=== PATIENT | female | born 1985 | race Caucasian/White ===

== ENCOUNTER 2019-10-16 06:10 | Day surgery (SDC) | payer MEDICAID ==
[~2019-10-16] VITALS: Ht 165.1 cm; Wt 123.4 kg
[2019-10-16] MEDS ORDERED: cefOXitin 2 GM IVPB PREMIX 50 ML IV ONE (06:45)
[2019-10-16 07:11] LABS: MEAN CORPUSCULAR HEMOGLOBIN 26 pg (27-31); MEAN CORPUSCULAR HGB CONC 29 % (32-36); MEAN CORPUSCULAR VOLUME 88 fL (79.0-98.0); PLATELET COUNT (AUTO) 283 K/uL (130-430); RED BLOOD CELL COUNT(AUTO) 2.56 MIL/uL (4.2-6.2); RED CELL DISTRIBUTION WIDTH 17.7 % (9.0-15.0); WHITE BLOOD COUNT (AUTO) 6.5 K/uL (4.8-10.8)
[2019-10-16 07:27] LABS: BILIRUBIN,URINE NEGATIVE (NEGATIVE); BLOOD, URINE 3+ (NEGATIVE); CLARITY/URINE CLOUDY (CLEAR); COLOR,URINE YELLOW (YELLOW); GLUCOSE,URINE NEGATIVE (NEGATIVE); KETONES,URINE NEGATIVE (NEGATIVE); LEUKOCYTE ESTERASE ,URINE NEGATIVE (NEGATIVE); NITRITE, URINE NEGATIVE (NEGATIVE); PROTEIN URINE 2+ (NEGATIVE); UROBILINOGEN,URINE 0.2 (0.2-1.0)
[2019-10-16 07:28] LABS: CALCIUM 7.9 mg/dL (8.4-11.0); POTASSIUM 4.2 mmol/L (3.5-5.1); TOTAL BILIRUBIN 0.2 mg/dL (0.0-1.0)
[2019-10-16 07:34] LABS: HEMOGLOBIN 6.6 g/dL (12.0-16.0)
[2019-10-16 07:35] LABS: HEMATOCRIT 22.4 % (36-48)
[2019-10-16 07:41] LABS: HCG,QUAL RESULT NEGATIVE (NEGATIVE)
[2019-10-16 08:11] LABS: BACTERIA,URINE FEW /HPF (None Seen); RBC,URINE >100 /HPF (0-3); WBC,URINE 0-3 /HPF (0-3)
[2019-10-16 10:08] LABS: LYMPHOCYTES % (MANUAL) 19 % (20-46)
[2019-10-16 10:09] LABS: BASOPHILS % (MANUAL) 0 % (0-2); EOSINOPHILS % (MANUAL) 3 % (0-7); MONOCYTES % (MANUAL) 2 % (0-11)
[2019-10-16] MEDS ORDERED: PROPOFOL 200MG/ 20ML VIAL (DIPRIVAN) IV ONE (12:35)
[2019-10-16] MEDS ORDERED: DEXAMETHASONE SOD PHOSPHATE 4 MG/ML VIAL IVP ONE (12:35)
[2019-10-16] MEDS ORDERED: MEPERIDINE HCL/PF 100 MG/ML AMP IM ONE (12:35)
[2019-10-16] MEDS ORDERED: ROCURONIUM BROMIDE 10 MG/ML (ZEMURON) IV ONE (12:35)
[2019-10-16] MEDS ORDERED: MIDAZOLAM HCL 5 MG/5 ML VIAL IVP ONE (12:35)
[2019-10-16] MEDS ORDERED: NS IRRIG SOLN 1000 ML IR ONE (12:35)
[2019-10-16] MEDS ORDERED: fentaNYL CITRATE 250 MCG/5 ML AMP IV ONE (12:35)
[2019-10-16] MEDS ORDERED: WATER FOR IRRIGATION,STERILE 1,000 ML IRRIG.SOLN IR ONE (12:35)
[2019-10-16] MEDS ORDERED: NS 1000 ML IV.SOLN IV ONE (12:35)
[2019-10-16] MEDS ORDERED: ONDANSETRON HCL 4 MG/2 ML VIAL IVP ONE (12:35)
[2019-10-16] MEDS ORDERED: SEVOFLURANE 15 MIN GAS INH ONE (12:35)
[2019-10-16] MEDS ORDERED: LR 1,000 ML IV.SOLN IV ONE (12:35)
[2019-10-16] MEDS ORDERED: KETOROLAC TROMETHAMINE 30 MG VIAL IVP ONE (12:35)
[2019-10-16 12:42] VITALS: BP_SYST 133
[2019-10-16 16:00] VITALS: BP_SYST 97
[2019-10-16 20:30] VITALS: BP_SYST 92
[2019-10-17 00:33] VITALS: BP_SYST 109
[2019-10-17 08:00] VITALS: BP_SYST 122
[2019-10-17 08:36] LABS: BASOPHILS % (AUTO) 0.5 % (0.0-2.0); EOSINOPHILS # (AUTO) 0.3 K/uL (0.0-0.4); EOSINOPHILS % (AUTO) 4.8 % (0.0-4.0); HEMATOCRIT 25.9 % (36-48); HEMOGLOBIN 8.2 g/dL (12.0-16.0); LYMPHOCYTES # (AUTO) 0.7 K/uL (1.0-5.5); LYMPHOCYTES % (AUTO) 9.4 % (20.5-51.5); MEAN CORPUSCULAR HEMOGLOBIN 27 pg (27-31); MEAN CORPUSCULAR HGB CONC 32 % (32-36); MEAN CORPUSCULAR VOLUME 87 fL (79.0-98.0); MONOCYTES # (AUTO) 0.3 K/uL (0.0-1.0); MONOCYTES % (AUTO) 4.4 % (1.7-9.3); NEUTROPHILS # (AUTO) 5.8 K/uL (1.8-7.7); NEUTROPHILS % (AUTO) 80.9 % (40.0-70.0); PLATELET COUNT (AUTO) 229 K/uL (130-430); RED BLOOD CELL COUNT(AUTO) 2.99 MIL/uL (4.2-6.2); WHITE BLOOD COUNT (AUTO) 7.2 K/uL (4.8-10.8)
[2019-10-17 09:11] LABS: PROTHROMBIN TIME 9.6 SECS (9.5-12.5)
[2019-10-17] MEDS ORDERED: cefOXitin 2 GM IVPB PREMIX 50 ML IV ONE (11:45)
[2019-10-17] MEDS ORDERED: cefOXitin SODIUM 2 GM in D5W 100 ML IV ONE ×4 (12:00)
[2019-10-17 12:28] VITALS: BP_SYST 130
[2019-10-17] MEDS ORDERED: LR 1,000 ML IV SCH (13:35)
[2019-10-17] MEDS ORDERED: KETOROLAC TROMETHAMINE 30 MG VIAL IVP PRN (13:45)
[2019-10-17] MEDS ORDERED: HYDROmorphone 1 MG INJ. 1 MG/ML AMPUL IVP PRN (13:45)
[2019-10-17] MEDS ORDERED: MEPERIDINE HCL/PF 25 MG/ML DISP.SYRIN IVP PRN (13:45)
[2019-10-17] MEDS ORDERED: ONDANSETRON HCL 4 MG/2 ML VIAL IVP PRN (13:45)
[2019-10-17] MEDS ORDERED: ONDANSETRON HCL 4 MG/2 ML VIAL ONE (16:55)
[2019-10-17 17:53] VITALS: BP_SYST 128
[2019-10-17 19:40] VITALS: BP_SYST 140
[2019-10-18 00:19] VITALS: BP_SYST 112
[2019-10-18 08:12] VITALS: BP_SYST 118
[2019-10-18 08:43] VITALS: BP_SYST 118
== END 2019-10-18 10:45 | disposition home or self-care (01) ==
LOC: SMU 06:10 → SDS 06:10 → SMU 12:01 → SDS 10-18 10:45
PROVIDERS: ATTEND Obstetrics & Gynecology
DX: D25.9 Leiomyoma of uterus, unspecified (principal); N83.6 Hematosalpinx; N70.11 Chronic salpingitis; N92.0 Excessive and frequent menstruation with regular cycle; D50.9 Iron deficiency anemia, unspecified; E66.01 Morbid (severe) obesity due to excess calories; Z68.42 Body mass index [BMI] 45.0-49.9, adult; Z88.5 Allergy status to narcotic agent; Z91.048 Other nonmedicinal substance allergy status
CPT/HCPCS: 36415; 36430; 58573; 80053; 81000; 84703; 85025; 85610; 86870 ×2; 86886; 86900; 86901; 86920; 87081; 87086; 88307; C1727; J0694 ×2; J1100; J1885; J2175; J2250; J2405 ×2; J2704; J3010; J7030; J7050; J7060; J7120; P9021; S2900; 85007; 86905; E0190